=== PATIENT | male | born 1995 | race Caucasian/White ===

== ENCOUNTER 2020-10-06 22:11 | Emergency (ER) | payer OTHER ==
[~2020-10-06] VITALS: Ht 182.9 cm; Wt 63.0 kg
[2020-10-07] MEDS ORDERED: PHENAGIL CH TA1 EACH PO (02:27)
== END 2020-10-07 02:40 | disposition home or self-care (01) ==
LOC: ER 22:11
DX: J06.9 Acute upper respiratory infection, unspecified (principal)